=== PATIENT | male | born 1975 | race Hispanic/Latino ===

== ENCOUNTER 2021-05-24 08:35 | Inpatient (IN) | payer OTHER ==
[~2021-05-24] VITALS: Ht 175.3 cm; Wt 78.8 kg
--- NOTE | 2021-05-24 08:44 | NUR ---
PATIENT AMBULATED TO ROOM WITH STEADY GAIT AND PHYSCIAN AT BEDSIDE FOR EVAL
[2021-05-24 09:15] LABS: HEMATOCRIT 47.9 % (39.0-50.0); IMMATURE GRANULOCYTES 0.3 % (0.0-5.0); MEAN CELL VOLUME 92.5 fL CALC (80.0-100.0); MEAN CORPUSCULAR HGB 30.9 pG CALC (26.0-32.0); MEAN CORPUSCULAR HGB CONC 33.4 g/dL CAL (32.0-36.0); NEUT# 4.79 thou/uL (1.82-7.42); RED BLOOD COUNT 5.18 mill/uL (4.70-6.10); RED CELL DISTRI WIDTH 12.2 % (11.5-15.5)
[2021-05-24 09:44] LABS: ALKALINE PHOSPHATASE 93 u/l (38-126); ANION GAP 15 (6-22 (CALC)); BILIRUBIN, TOTAL 1.2 mg/dL (0.0-1.4); BUN 15 mg/dL (9-20); BUN/CREATININE RATIO 19 (12-20 (CALC)); C-REACTIVE PROTEIN 6.9 mg/dL (0-0.9); CARBON DIOXIDE 26 mmol/l (22-30); CHLORIDE 100 mmol/l (95-108); CREATININE 0.8 mg/dL (0.7-1.3); GFR > 60 ML/MIN (>=60 (CALC)); GFR FOR AFR.AMER. > 60 ML/MIN (>=60 (CALC)); POTASSIUM 3.8 mmol/l (3.5-5.1); SGOT/AST 69 u/l (17-59); SODIUM 137 mmol/l (137-146); TOTAL PROTEIN 7.6 g/dL (6.3-8.2)
--- NOTE | 2021-05-24 10:00 | NUR ---
IV MEDS AND FLUIDS INFUSING WITHOUT DIFFICULTY. STABLE ON MONITOR, NO DISTRESS NOTED.
--- NOTE | 2021-05-24 11:15 | NUR ---
NO CHANGES, STABLE. PENDING ADMISSION
--- NOTE | 2021-05-24 12:12 | NUR ---
VITALS UPDATED. ADMITTING PHYSICIAN AT BEDSIDE DISCUSSING PLAN FOR ADMISSION. 2L/NC IN PLACE, 96%
[2021-05-24 12:17] LABS: URINE BILIRUBIN - DIPSTICK NEGATIVE (NEGATIVE); URINE BLOOD DIPSTICK NEGATIVE (NEGATIVE); URINE GLUCOSE - DIPSTICK NEGATIVE (NEGATIVE); URINE KETONE 40 mg/dL (NEGATIVE); URINE LEUK ESTERASE NEGATIVE (NEGATIVE); URINE PROTEIN - DIPSTICK TRACE mg/dL (NEG-TRACE); URINE SPECIFIC GRAVITY 1.015
[2021-05-24 12:31] LABS: URINE COLOR DK. YELLOW; URINE NITRITE - DIPSTICK NEGATIVE (Negative)
--- NOTE | 2021-05-24 12:35 | NUR ---
6 MIN WALK TEST WITHOUT OXYGEN COMPLETED ORDERED BY DR DINH, SATS MAINTAINING AT 90%.
--- NOTE | 2021-05-24 14:10 | NUR ---
REPORT REC FROM Adan SANTOS RN
--- NOTE | 2021-05-24 14:12 | NUR ---
REPORT GIVEN TO [facility].
[2021-05-24 14:48] VITALS: BP 121/73
--- NOTE | 2021-05-24 15:32 | NUR ---
PT ARRIVED VIA WC ACCOMPANIED BY Carlie CLARKE LPN. PT A&O X4. NO DISTRESS NOTED. O2 VIA NC @2L IN PLACE, SUSTAINING 94-95%. PT REPORTS EXERTIONAL SOB, WITH SOAP MIXER COUGH THAT IS SOMETIMES PRODUCTIVE IN NATURE. CLEAR BREATH SOUNDS UPON AUSCULTATION. SECURITY SYSTEM ANALYST IN PLACE; INITIAL READING OF SR 85. #20G RAC HEALTHY AND PATENT, REMDESIVIR INITATED AT THIS TIME, PT EDUCATED ON MEDICATION. PT ALSO EDUCATED ON DISEASE PROCESS; HE WAS CONCERNED AND UNSURE "WHAT WAS GOING ON". REPORTS SYMPTOMS HAVE WORSENED IN THE PAST 4 DAYS, DENIES BEING IN CONTACT WITH ANYONE THAT HAS COVID, ALSO DENIES REC THE COVID VACCINE. ACTIVE BOWEL SOUNDS X4 QUADRANTS, BM REPORTED TWO DAYS AGO. SKIN INTACT. PT INSTRUCTED TO USE THE URINAL. INSTRUCTED TO CALL IF NEEDING TO GO TO THE BATHROOM TO PLACE ON PORTABLE O2 TANK. PT ORIENTED TO ROOM. ASSESSMENT COMPLETED. DISCUSSED POC. CALL LIGHT WITHIN REACH. ISOLATION PRECAUTIONS IN PLACE, PT EDUCATED ON THE NEEDS FOR THESE PRECAUTIONS. CALL
[2021-05-24 19:00] VITALS: BP 119/71
--- NOTE | 2021-05-24 20:30 | NUR ---
PT MEDICATED ORDERS PROVIDE. NO S/O DISTRESS NOTED. TRANSLATION PROVIDED BY ELI IN REGISTRATION. PT MEDICATED AND ASSESSMENT COMPLETED AT THIS TIME. FRESH ICE AND ICEWATER PROVIDED FOR PT. HE HAS DRINKS AT BEDSIDE FOR ICE. CALL LIGHT W/IN REACH, LIGHTS AND TV ARE ON. PT DENIES COUGH. OXYGEN NC 2L AT THIS TIME WITH 02 SATS ABOVE 92% STABLE.
[2021-05-25] VITALS: BP 118/67
--- NOTE | 2021-05-25 02:00 | NUR ---
Pt called to c/o the noise the neg pressure machine is making too much noise. We explained to him that it was necessary while being in the covid unit, verbalized understanding. Denies any other needs at this time.
--- NOTE | 2021-05-25 02:30 | NUR ---
ED CALLED TO REPORT TELEMETRY MONTIOR is not reading. Pt surveillance monitor leads replaced, confirmed readings by ed. Battery change also at this time.
[2021-05-25 04:00] VITALS: BP 116/72
[2021-05-25 05:51] LABS: HEMATOCRIT 47.2 % (39.0-50.0); HEMOGLOBIN 15.5 g/dl (14.0-18.0); IMMATURE GRANULOCYTES 0.6 % (0.0-5.0); MEAN CELL VOLUME 92.9 fL CALC (80.0-100.0); MEAN CORPUSCULAR HGB 30.5 pG CALC (26.0-32.0); MEAN CORPUSCULAR HGB CONC 32.8 g/dL CAL (32.0-36.0); NEUT# 3.49 thou/uL (1.82-7.42); RED BLOOD COUNT 5.08 mill/uL (4.70-6.10); RED CELL DISTRI WIDTH 12.1 % (11.5-15.5)
[2021-05-25 06:13] LABS: ALBUMIN 3.4 g/dL (3.2-5.0); ALKALINE PHOSPHATASE 86 u/l (38-126); ANION GAP 13 (6-22 (CALC)); BUN 16 mg/dL (9-20); BUN/CREATININE RATIO 28 (12-20 (CALC)); C-REACTIVE PROTEIN 5.8 mg/dL (0-0.9); CARBON DIOXIDE 21 mmol/l (22-30); CHLORIDE 108 mmol/l (95-108); CREATININE 0.6 mg/dL (0.7-1.3); GFR > 60 ML/MIN (>=60 (CALC)); GFR FOR AFR.AMER. > 60 ML/MIN (>=60 (CALC)); POTASSIUM 4.3 mmol/l (3.5-5.1); SGOT/AST 65 u/l (17-59); SODIUM 137 mmol/l (137-146); TOTAL PROTEIN 6.5 g/dL (6.3-8.2)
[2021-05-25 06:29] LABS: BILIRUBIN, TOTAL 0.6 mg/dL (0.0-1.4)
--- NOTE | 2021-05-25 07:26 | NUR ---
REPORT REC FROM Kiera TOMLINSON RN
[2021-05-25 09:32] VITALS: BP 117/73
--- NOTE | 2021-05-25 09:39 | NUR ---
PT LAYING IN BED. A&O X4. FLAT AFFECT NOTED. O2 VIA NC @2L IN PLACE, O2 SUSTIANING 92-93%. WALK TEST COMPLETED AT THIS TIME BY THIS FIELD SPECIALIST. O2 VIA ROOM AIR 92%, DURING AMBULATION O2 NOW 87%. O2 REAPPLIED, O2 AT 91-92% AT REST WITH O2 @2L. CLEAR BREATH SOUNDS UPON AUSCULTATION, PT REPORTS IMPROVEMENT WITH COUGH. STILL REAL ESTATE JOB TITLES IN NATURE. PAN GREASER IN PLACE. WITH A READING OF SR 77BPM. ACTIVE BOWEL SOUNDS X4 QUADRANTS. NO OTHER NEEDS AT THIS TIME. ASSESSMENT COMPLETED. DISCUSSED POC. CALL LIGHT WITHIN REACH. ISOLATION PRECAUTIONS IN PLACE.
[2021-05-25 11:36] VITALS: BP 108/70
--- NOTE | 2021-05-25 15:42 | NUR ---
pt sitting in bed. no distress noted. no needs at this time. call light within reach.
[2021-05-25 16:10] VITALS: BP 113/68
--- NOTE | 2021-05-25 18:03 | NUR ---
IS DEVICE GIVEN TO PT. PT DEMONSTRATING PROPER USE OF DEVICE. CURRENTLY ACHIEVING 1500 ML X4 REPITITIONS. PT ENCOURAGED TO USE IS DEVICE Q1 HR WHILE AWAKE. HOME PORTABLE O2 PLACED IN ROOM. NO OTHER NEEDS AT THIS TIME. CALL LIGHT WITHIN REACH.
[2021-05-25 18:53] VITALS: BP 123/74
--- NOTE | 2021-05-25 19:56 | NUR ---
REPORT RECEIVED FROM Jose HUDSON
--- NOTE | 2021-05-25 20:44 | NUR ---
PATIENT RESTING COMFORTABLY.NORMAL HEART SOUNDS SR ON TELE, CLEAR LUNG SOUNDS THROUGHT BASES, PT ON ROOM AIR READING 93-94% WITH 2L ON [place], USING PRN FOR EXERTION EPISODES. ACTIVE BOWEL SOUNDS LAST BM 05/22, DENIES ANY ISSUES. #20 IN THE RAC SALINE LOCK PLAN OF CARE REVIEWED, CALL LIGHT AND BEDSIDE TABLE WITHIN REACH
[2021-05-26] VITALS (7 sets, daily range): BP systolic 101–115; BP diastolic 56–73
--- NOTE | 2021-05-26 | NUR ---
PT STATES NOTHING HURTS AND HE FEELS OKAY AT THE MOMENT, BEDSIDE TABLE AND CALL LIGHT WITHIN REACH.
--- NOTE | 2021-05-26 00:20 | NUR ---
PATIENT RESTING COMFORTABLY IN BED, DENIES ANY NEEDS AT THIS TIME
--- NOTE | 2021-05-26 04:30 | NUR ---
PATIENT UP TO THE TESTROOM AT THIS TIME, ONLY COMPALINT IS GENERALIZED ACHING.
[2021-05-26 05:26] LABS: HEMATOCRIT 44.8 % (39.0-50.0); IMMATURE GRANULOCYTES 0.5 % (0.0-5.0); MEAN CELL VOLUME 92.9 fL CALC (80.0-100.0); MEAN CORPUSCULAR HGB 31.1 pG CALC (26.0-32.0); MEAN CORPUSCULAR HGB CONC 33.5 g/dL CAL (32.0-36.0); NEUT# 4.31 thou/uL (1.82-7.42); RED BLOOD COUNT 4.82 mill/uL (4.70-6.10); RED CELL DISTRI WIDTH 12.2 % (11.5-15.5)
[2021-05-26 05:48] LABS: ALBUMIN 3.3 g/dL (3.2-5.0); ALKALINE PHOSPHATASE 78 u/l (38-126); ANION GAP 14 (6-22 (CALC)); BILIRUBIN, TOTAL 0.4 mg/dL (0.0-1.4); BUN 20 mg/dL (9-20); BUN/CREATININE RATIO 31 (12-20 (CALC)); CARBON DIOXIDE 21 mmol/l (22-30); CHLORIDE 107 mmol/l (95-108); CREATININE 0.6 mg/dL (0.7-1.3); GFR > 60 ML/MIN (>=60 (CALC)); GFR FOR AFR.AMER. > 60 ML/MIN (>=60 (CALC)); POTASSIUM 4.4 mmol/l (3.5-5.1); SGOT/AST 38 u/l (17-59); SODIUM 138 mmol/l (137-146); TOTAL PROTEIN 6.3 g/dL (6.3-8.2)
--- NOTE | 2021-05-26 07:52 | NUR ---
Prelininary blood cultures called to Nemesio GRAVES. 09/11 vials growing gram (-) rods. New orders entered.
--- NOTE | 2021-05-26 08:26 | NUR ---
ASSESSMENT DONE. PATIENT IS ALERT AND ORIENT X3. PATIENT DENIES PAIN AT THIS TIME OR SOB. PATIENT USING THE INCENTIVE SPIROMETRY GOES UP TO 1000ML. O2 READING 92% IN RA. PATIENT DENIES NEEDS AT THIS TIME. CALL LIGHT IN REACH.
--- NOTE | 2021-05-26 12:20 | NUR ---
PATIENT IS RESITNG IN BED O2 READING 94% IN RA. PATIENT DENIES NEEDS AT THIS TIME. CALL LIGHT IN REACH.
--- NOTE | 2021-05-26 15:30 | NUR ---
PATIENT IS RESTING IN BED WITH NO DISTRESS NOTED. PATIENT DENIES NEEDS AT THIS TIME. CALL LIGHT IN REACH.
--- NOTE | 2021-05-26 18:55 | NUR ---
REPORT RECEIVED FROM Adan PORTER RN
--- NOTE | 2021-05-26 21:08 | NUR ---
ALERT AND ORIENTED X 3, JAPANESE SPEAKING ONLY. VS AND ASSEMENT COMPLETED. CLEAR LUNG SOUNDS THROUGHOUT BASES, PT ON RA 93% NORMAL HEART SOUNDS, LAST TELE READING SR 67. PT DENIES NEED FOR COUGH MEDICINE AT THIS TIME. PT DENIES ANY PAIN OR FURTHER NEEDS. ACTIVE BOWEL SOUNDS THROUGHOUT ALL QUADRANTS, LAST REPORTED BOWEL MOVEMENT 05/26. #20 RAC SL, FLUSHED AND PATENT. PLAN OF CARE REVIEWED, CALL LIGHT AND BEDSIDE TABLE WITHIN REACH.
[2021-05-27 03:35] VITALS: BP 121/73
[2021-05-27 06:14] LABS: HEMATOCRIT 46.1 % (39.0-50.0); HEMOGLOBIN 15.4 g/dl (14.0-18.0); IMMATURE GRANULOCYTES 1.3 % (0.0-5.0); MEAN CELL VOLUME 93.3 fL CALC (80.0-100.0); MEAN CORPUSCULAR HGB 31.2 pG CALC (26.0-32.0); MEAN CORPUSCULAR HGB CONC 33.4 g/dL CAL (32.0-36.0); NEUT# 5.12 thou/uL (1.82-7.42); RED BLOOD COUNT 4.94 mill/uL (4.70-6.10); RED CELL DISTRI WIDTH 12.1 % (11.5-15.5)
[2021-05-27 06:29] LABS: ALBUMIN 3.3 g/dL (3.2-5.0); ALKALINE PHOSPHATASE 79 u/l (38-126); ANION GAP 15 (6-22 (CALC)); BILIRUBIN, TOTAL 0.4 mg/dL (0.0-1.4); BUN 21 mg/dL (9-20); BUN/CREATININE RATIO 30 (12-20 (CALC)); CARBON DIOXIDE 20 mmol/l (22-30); CHLORIDE 106 mmol/l (95-108); CREATININE 0.7 mg/dL (0.7-1.3); GFR > 60 ML/MIN (>=60 (CALC)); GFR FOR AFR.AMER. > 60 ML/MIN (>=60 (CALC)); POTASSIUM 4.4 mmol/l (3.5-5.1); SGOT/AST 40 u/l (17-59); SODIUM 136 mmol/l (137-146); TOTAL PROTEIN 6.3 g/dL (6.3-8.2)
[2021-05-27 08:38] VITALS: BP 117/73
--- NOTE | 2021-05-27 08:38 | NUR ---
ASSESSMENT DONE. PATIENT IS ALERT AND ORIENT X3. PATIENT DENIES PAIN OR SOB. O2 READING 95% RA. RESPS EVEN AND UNLABORED. PATIENT STATED HE READY TO BE DC. NOTIFIED PATIENT THAT WE ARE WAITING FOR DOCTOR TO MAKE ROUNDS. PATIENT VERBALIZED UNDERSTANDING. PATIENT DENIES ANY OTHER NEEDS AT THIS TIME. CALL LIGHT IN REACH.
[2021-05-27] MEDS ORDERED: DEXAMETHASON6 MG PO (09:24)
[2021-05-27] MEDS ORDERED: ZITHROMAX250 MG PO (09:24)
[2021-05-27] MEDS ORDERED: OMNICEF300 MG PO (09:25)
[2021-05-27] MEDS ORDERED: VENTOLIN HFA108 MCG IN (09:25)
[2021-05-27] MEDS ORDERED: ASPIRIN REGULA325 M1 PO (09:26)
[2021-05-27 11:20] VITALS: BP 115/59
--- NOTE | 2021-05-27 11:20 | NUR ---
PATIENT IS RESTING IN BED WITH NO DISTRESS NOTED. TELE IN PLACE. O2 92% IN RA. PATIENT DENIES NEEDS AT THIS TIME. CALL LIGHT IN REACH.
--- NOTE | 2021-05-27 15:36 | NUR ---
Discharge instructions given. Patient verbalizes understanding of same. Discharged in stable condition via Wheelchair to Home with staff. All belongings sent with pt. ALSO HIS O2 TANK WAS SEND WITH PATIENT.
== END 2021-05-27 15:36 | disposition home or self-care (01) | DRG 177 ==
LOC: ED 08:35 → EDBD 10:04 → ED 10:04 → ED-I 11:30 → ED 11:42 → MS2 11:43
PROVIDERS: Family Medicine; Nurse Practitioner; ADMIT Hospitalist; ATTEND Hospitalist
PROC: XW033E5 Introduction of Remdesivir Anti-infective into Peripheral Vein, Percutaneous Approach, New Technology Group 5 (ICD-10-PCS; principal; 2021-05-24)
DX: U07.1 COVID-19 (principal); J12.82 Pneumonia due to coronavirus disease 2019; J96.01 Acute respiratory failure with hypoxia; R78.81 Bacteremia
CPT/HCPCS: J1650; Q9967